=== PATIENT | male | born 1955 | race Caucasian/White ===

== ENCOUNTER 2020-09-04 08:55 | Day surgery (SDC) | payer MEDICARE, MEDICAID ==
--- OUTSIDE RECORDS SUMMARY | 2020-08-22 13:32 | XMSREPORT | Referral Summary ---
:1955 Author Organization [facility] Address [facility] [place] [address] Care Team Providers Name Role Phone Pcp, Primary Care Provider Unavailable Mark Mcfadden PA-C Attributed Provider Reason for Referral Transitions of Care (Routine) Status Reason Specialty Diagnoses / Referred By Referred To Procedures Contact Contact New Request Patient Diagnoses Positive colorectal cancer screening using Cologuard test Ondina Mcfadden, Health, Chi Preference PA-C [place], [address] [place] [phone] Phone: Fax: Encounter Details Date Type Department Care Team Description 08/19/2020 Orders Only [facility] Ondina Mcfadden, Pos itive colorectal CLINIC PA-C cancer screening using [address] Cologuard test ([place] [address] 1 Dx) [phone] [place] [id number] Allergies Active Allergy Reactions Severity Noted Date Comments Isosorbide Headache 03/30/2017 Pregabalin Confusion 03/30/2017 documented as of this encounter (statuses as of 08/19/2020) Medications Medication Sig Dispensed Refills Start Date End Date Status aspirin 81 mg enteric Take 81 mg by 0 Active coated tablet mouth 1 time per day acetaminophen (TYLENOL) Take 650 mg by 0 Active 325 mg tablet mouth as needed omeprazole (PRILOSEC) Take 1 capsule 90 capsule 0 01/03/2020 Active 40 mg (40 mg) by capsuleIndications: mouth 1 time Gastroesophageal reflux per day disease without esophagitis nitroglycerin Dissolve 1 5 tablet 0 01/03/2020 Acti ve (NITROSTAT) 0.4 mg tablet (0.4 mg) sublingual under the tabletIndications: tongue Every 5 Other myocardial minutes as infarction type (HCC) needed for chest pain May repeat every 5 min for a total of 3 doses in 15 min metoprolol succinate Take 1 tablet 90 tablet 1 01/03/2020 Active (TOPROL XL) 25 mg SR (25 mg) by tablet (24 mouth 1 time hr)Indications: CAD S/P per day percutaneous coronary angioplasty meloxicam (MOBIC) 7.5 Take 1 tablet 60 tablet 0 05/06/2020 Active mg tabletIndications: (7.5 mg) by Inflammation of hand mouth Every 12 joint, unspecified hours with food laterality methocarbamol (ROBAXIN) Take 1 tablet 90 tablet 0 05/06/2020 1 07/11/2020 Active 500 mg (500 mg) by tabletIndications: mouth Every 6 Myofascial pain to 8 hours as needed for muscle spasm levothyroxine 112 mcg Take 1 tablet 90 tablet 2 06/19/2020 Active tabletIndications: (112 mcg) by Hypothyroidism mouth 1 time (acquired) per day diclofenac (VOLTAREN) 1 Apply topically 0 Active % gel as needed Cholecalciferol Take by mouth 1 0 Active (VITAMIN D-3) 25 MCG time per day (1000 UT) CAPS vitamin C (ASCORBIC Take 1,000 mg 0 Active ACID) 1000 MG tablet by mouth 1 time per day vitamin E 400 units Take 400 Units 0 Active capsule by mouth 1 time per day FLUoxetine (PROZAC) 40 Take 1 capsule 90 capsule 0 07/29/2020 Active mg capsuleIndications: (40 mg) by Anxiety and depression mouth 1 time per day rosuvastatin (CRESTOR) Take 1 tablet 90 tablet 1 08/12/2020 Active 10 mg (10 mg) by tabletIndications: mouth every Mixed hyperlipidemia night at bedtime ezetimibe (ZETIA) 10 mg Take 1 tablet 90 tablet 1 08/12/2020 Active tabletIndications: (10 mg) by Mixed hyperlipidemia mouth 1 time per day documented as of this encounter (statuses as of 08/19/2020) Active Problems Problem Noted Date Epiretinal membrane (ERM), bilateral 07/24/2020 Combined forms of age-related cataract of both eyes Vitreous detachment of both eyes 07/24/2020 Arthritis 03/18/2019 Lumbar degenerative disc disease 12/19/2018 Degeneration of intervertebral disc of cervical region 06/15/2017 Chronic bilateral low back pain with sciatica 04/18/20 17 Facet arthropathy 04/18/2017 Myofascial pain 04/18/2017 Neck pain 04/18/2017 Toe pain, left 04/18/2017 Degenerative disc disease, lumbar 04/18/2017 Cervical radiculopathy 04/18/2017 Lumbar radiculopathy 04/18/2017 Hyperlipidemia 03/30/2017 Primary osteoarthritis of right knee 03/30/2017 Hypothyroidism (acquired) 03/30/2017 Anxiety and depression 03/30/2017 CAD S/P percutaneous coronary angioplasty 03/30/2017 documented as of this encounter (statuses as of 08/19/2020) Immunizations Name Administration Dates Next Due FLU VACCINE SINGLE DOSE 04/15/2020, 03/12/2019, 03/30/2017 0.5mL(6MO+Fluzone/Flulaval/Fluarix,3YR+Af luria) Influenza Vaccine,unspecified 03/30/2017, 06/07/2013 Pneumococcal Polysaccharide PPSV23 12/19/2015 TDAP 06/15/2016 Zoster Recombinant (Shingrix) 07/29/2020 documented as of this encounter Social History Tobacco Use Types Packs/Day Years Used Date Never Smoker Smokeless Tobacco: Never Used Alcohol Use Drinks/Week oz/Week Comments Yes occassionally Sex Assigned at Date Recorded Not on file documented as of this encounter Functional Status Functional Status Response Date of Assessment Is the person deaf or does he/she have serious difficulty No 04/29/2017 hearing? Is this person blind or does he/she have difficulty No 04/29/2017 seeing even when wearing glasses? Do you have difficulty with walking, balance, climbing Yes 05/02/2017 stairs, or had a fall in the last 3 months? documented as of this encounter Plan of Treatment Date Type Specialty Care Team Description 08/26/2020 Office Visit Family Practice Ondina Mcfadden, PA [facility] [address] [place] [id number] [phone] 08/28/2020 Office Visit Physical Medicine and Rehab Fill Johnathon box MD [address] [place] [address] [phone] 10/27/2020 Office Visit Orthopedics Hamzah Sunshine MD [address] [place] [address] [phone] Name Type Priority Associated Diagnoses Order S [facility] REFERRAL Referral Routine Positive colorectal Order ed: 08/19/2020 ENDOSCOPY NON ONE CHART cancer screening using Cologuard test documented as of this encounter Visit Diagnoses Diagnosis Positive colorectal cancer screening usi ng Cologuard test - Primary documented in this encounter
[~2020-09-04 08:55] MED LIST: Midazolam 1 MG/ML 2 ML SDV ONE; Propofol 200 MG/20 ML SDV ONE
[2020-09-04] MEDS ORDERED: Sodium Chloride 0.9% 10 ML Syringe FLUSH PRN (09:00)
[2020-09-04] MEDS ORDERED: Lactated Ringers 1,000 ML IV SCH (09:00)
--- NOTE | 2020-09-04 09:47 | PCM.PN ---
- General Info Date of Service: 09/04/20 - Review of Systems Systems Review Comment:: 64-year-old male referred today for his initial colonoscopy. He was recently noted to have a positive Cologuard test. Patient denies any known rectal bleeding and also denies any known family history of colon cancer. He is medically stable to proceed today. His recent history and physical is reviewed and no significant changes are noted. I have discussed the proposed colonoscopy with the patient. Risks such as but not limited to bleeding and GI injury reviewed. He agrees to proceed. - Patient Data Vitals - Most Recent: Last Vital Signs Temp 98.1 F 09/04/20 09:34 Pulse 63 09/04/20 09:34 Resp 16 09/04/20 09:34 BP 113/73 09/04/20 09:34 Pulse Ox 98 09/04/20 09:34 Weight - Most Recent: 84.368 kg Med Orders - Current: Current Medications Lactated Ringer's (Ringers, Lactated) 1,000 mls @ 125 mls/hr IV ASDIRECTED SHAHBAZ Last Admin: 09/04/20 09:29 Dose: 125 mls/hr Documented by: Sodium Chloride (Sodium Chloride 0.9% 10 Ml Syringe) 10 ml FLUSH ASDIRECTED PRN PRN Reason: Keep Vein Open Discontinued Medications Midazolam HCl (Midazolam 1 Mg/Ml 2 Ml Sdv) Confirm Administered Dose 2 mg .ROUTE .STK-MED ONE Stop: 09/04/20 08:39 Propofol (Propofol 200 Mg/20 Ml Sdv) Confirm Administered Dose 400 mg .ROUTE .STK-MED ONE Stop: 09/04/20 08:40 Sepsis Event Note - Focused Exam Vital Signs: Vital Signs Temp Pulse Resp BP Pulse Ox 09/04/20 09:34 98.1 F 63 16 113/73 98 - Problem List Review Problem List Initiated/Reviewed/Updated: Yes - My Orders Last 24 Hours: My Active Orders 09/04/20 09:00 Patient Status [ADT] Routine Peripheral IV Care [RC] . DIRECTED Verify Patient Consent Obtain [RC] ASDIRECTED Lactated Ringers [Ringers, Lactated] 1,000 ml IV ASDIRECTED Sodium Chloride 0.9% [Saline Flush] 10 ml FLUSH ASDIRECTED PRN Peripheral IV Insertion Adult [OM.PC] Routine - Assessment Assessment:: Positive Cologuard - Plan Plan:: Colonoscopy
--- NOTE | 2020-09-04 10:39 | PCM.OPNOTE ---
- General Post-Op/Procedure Note Date of Surgery/Procedure: 09/04/20 Operative Procedure(s): Colonoscopy with Polypectomy Findings: Multiple Colon Polyps Moderate Sigmoid Diverticulosis Pre Op Diagnosis: + Cologuard Post-Op Diagnosis: Colon Polyps. Diverticulosis Anesthesia Technique: MAC Primary Surgeon: Deon Mtz Pathology: Colon Polyps EBL in mLs: 0 Complications: None Condition: Good
--- NOTE | 2020-09-04 11:41 | OR ---
Date of Procedure: 09/04/2020 PREOPERATIVE DIAGNOSIS: Positive Cologuard. POSTOPERATIVE DIAGNOSES: Colon polyps and sigmoid diverticulosis. OPERATIONS PERFORMED: Colonoscopy with polypectomy. INDICATIONS FOR SURGERY: This 64-year-old male was recently noted to have a positive Cologuard test and was referred for his initial colonoscopy. FINDINGS: Multiple polyps were noted on today's exam. There is a 7-mm pedunculated polyp in the sigmoid colon 15 cm from the anal verge. There is a 12-mm semi-pedunculated polyp in the descending colon 50 cm from the anal verge. There is a 9-mm sessile polyp in the proximal ascending colon, a 5-mm sessile polyp in the mid ascending colon, and a 5-mm semipedunculated polyp in the cecum. There is also a diminutive polyp in the descending colon, and a moderate degree of diverticulosis of the sigmoid colon, which does not appear to be acutely inflamed, or otherwise, complicated. PROCEDURE IN DETAIL: The patient was taken to the operating room. He was given intravenous sedation, and with him in the left lateral decubitus position, digital rectal exam was performed showing no rectal masses. The Olympus colonoscope was inserted into the rectum. Retroflexed examination of the rectal canal was performed. The scope was then carefully advanced under direct visualization through the entire length of the colon until the cecum was reached. The patient's prep was suboptimal, but good visualization of the colon was felt to have been achieved. Cecal acquisition was confirmed by noting the normal internal cecal anatomy including the appendiceal orifice and the ileocecal valve. The light was also noted to transilluminate the abdominal wall in the right lower quadrant. After the cecum was examined, the scope was slowly withdrawn sequentially re-examining the colonic segments until the entire colon and rectum had been fully examined. During insertion and withdrawal of the scope, the above-described polyps were identified. The 5 larger polyps were removed with cautery snare and retrieved into a polyp trap and will be submitted for pathology. The diminutive polyp was destroyed with cautery. There was no sign of any complication, and after the procedure was completed, the scope was removed, and the patient was taken from the operating room in satisfactory condition. ESTIMATED BLOOD LOSS: 0. COMPLICATIONS: None. PROGNOSIS: Good. JANNETH Mtz MD /[id number]
== END 2020-09-04 11:44 | disposition home or self-care (01) ==
LOC: LL.SDS 08:55
PROVIDERS: ATTEND Surgery
DX: D12.5 Benign neoplasm of sigmoid colon (principal); D12.4 Benign neoplasm of descending colon; D12.2 Benign neoplasm of ascending colon; D12.0 Benign neoplasm of cecum; K57.30 Diverticulosis of large intestine without perforation or abscess without bleeding; E78.5 Hyperlipidemia, unspecified; E03.9 Hypothyroidism, unspecified; I25.10 Atherosclerotic heart disease of native coronary artery without angina pectoris; Z01.812 Encounter for preprocedural laboratory examination; Z20.822 Contact with and (suspected) exposure to COVID-19; Z79.899 Other long term (current) drug therapy; Z80.0 Family history of malignant neoplasm of digestive organs; Z88.8 Allergy status to other drugs, medicaments and biological substances; Z79.890 Hormone replacement therapy
CPT/HCPCS: 00811; 88305; J2250; J2704; J7120; U0002